=== PATIENT | female | born 1940 | race Caucasian/White ===

== ENCOUNTER → 2016-10-10 | Outpatient (CLI) | payer MEDICARE ==
[~2016-10-10] MED LIST: 1-ME1LIQ PO; ASPI81 PO; LIPI40TA PO; METO50TA OR; PRIN20TA2 PO; SERT-132 PO; TAB-TAB PO; ZOLO20CO PO
[2016-10-10 12:17] LABS: HDL CHOLESTEROL 57.4 MG/DL (40.0-60.0)
== END ==
LOC: PLAB 08:26
PROVIDERS: ATTEND Family Medicine
DX: E78.5 Hyperlipidemia, unspecified (principal); R73.01 Impaired fasting glucose; I10 Essential (primary) hypertension
CPT/HCPCS: 36415; 80061; 82947; 84450; 84460

== ENCOUNTER → 2017-04-11 | Outpatient (CLI) | payer MEDICARE ==
[2017-04-11 14:18] LABS: ALBUMIN 4.1 GM/DL (3.4-5.0); AST (GOT) 25 U/L (15-37); BICARBONATE 29.8 MEQ/L (21.0-32.0); BLOOD UREA NITROGEN 17 MG/DL (7-18); CALCIUM 9.4 MG/DL (8.5-10.1); CHLORIDE 102 MEQ/L (98-107); CREATININE 0.53 MG/DL (0.50-1.00); GLOMERULAR FILTRATION RATE 112 ML/MIN (>89); GLUCOSE,FASTING 97 MG/DL (74-99); SODIUM (NA) 138 MEQ/L (136-145)
[2017-04-11 14:19] LABS: ALT (GPT) 33 U/L (10-53); CHOLESTEROL 139 MG/DL (120-200); TRIGLYCERIDES 80 MG/DL (42-150)
[2017-04-11 14:22] LABS: ALKALINE PHOSPHATASE 60 U/L (45-117); CHOLESTEROL/ HDL RATIO 2.17 RATIO; LDL CHOLESTEROL 59 MG/DL (0-99); TOTAL BILIRUBIN ADULT 0.6 MG/DL (0.2-1.0); TOTAL PROTEIN 7.9 GM/DL (6.4-8.2)
== END ==
LOC: PLAB 08:40
PROVIDERS: ATTEND Family Medicine
DX: E78.5 Hyperlipidemia, unspecified (principal); I11.9 Hypertensive heart disease without heart failure; R73.01 Impaired fasting glucose
CPT/HCPCS: 36415; 80053; 80061